=== PATIENT | female | born 1940 | race Caucasian/White ===

== ENCOUNTER → 2018-10-19 11:13 | Outpatient (CLI) | payer MEDICARE, MEDICAID ==
[2015-08-19 12:44] VITALS: BMI 44.6
[~2018-10-19 11:13] MED LIST: BAYER CHEWABLE81 MG PO; BRILINTA90 MG PO; CALTRATE 600 M600 M1 PO; CLARITIN 10 MG10 MG PO; DULCOLAX5 MG PO; ELIQUIS5 MG PO; FISH OIL 1,0001 CA1 PO; GLUCOPHAGE500 MG PO; HYDROCHLOROTH12.5 M1 PO; K-DUR20 MEQ PO; LEVOXYL50 MCG PO; MULTIPLE VITAMI1 TA1 PO; PRECOSE25 MG PO; TOPAMAX50 MG PO; TRAZODONE HCL150 MG PO; ZOCOR20 MG PO
--- NOTE | 2018-10-19 11:30 | NUR ---
12 LEAD EKG DONE, SHOWS SINUS BRADYCARDIA. PHYSICIAN ALERTED, WILL SEE PATIENT WHEN HE COMES IN.
--- NOTE | 2018-10-19 11:40 | NUR ---
PATIENT AND FAMILY UPDATED.
--- NOTE | 2018-10-19 12:30 | NUR ---
PHYSICIAN AT BEDSIDE TO SPEAK WITH PATIENT AND FAMILY, STATES THAT PATIENT IS IN SINUS BRADYCARDIA AND THE PROCEDURE IS CANCELLED.
--- NOTE | 2018-10-19 12:40 | NUR ---
PATIENT DISCHARGED, ALL BELONGINGS WITH PATIENT. FOLLOW UP APPOINTMENT SCHEDULED.
== END | disposition home or self-care (01) ==
LOC: D.CATH 11:13
PROVIDERS: ATTEND Internal Medicine Cardiovascular Disease
DX: I48.91 Unspecified atrial fibrillation (principal); Z01.812 Encounter for preprocedural laboratory examination